=== PATIENT | male | born 2000 | race Caucasian/White ===

== ENCOUNTER 2018-12-30 01:10 | Emergency (ER) | payer SELFPAY ==
[~2018-12-30] VITALS: Ht 177.8 cm; Wt 71.0 kg
[2018-12-30] MEDS ORDERED: LIDOCAINE 1%/EPI 1:100,000 10 ML VIAL IJ ONE (07:00)
[2018-12-30] MEDS ORDERED: BACITRACIN ZINC OINT UDPKT TOP ONE (07:00)
[2018-12-30] MEDS ORDERED: LIDOCAINE HCL/EPINEPHRINE 1%-EPI 1:100,000 20 ML VIAL INFIL ONE (07:06)
[2018-12-30 07:58] VITALS: BP 115/60
== END 2018-12-30 10:15 | disposition home or self-care (01) ==
LOC: ER 01:10
DX: S01.112A Laceration without foreign body of left eyelid and periocular area, initial encounter (principal); S01.81XA Laceration without foreign body of other part of head, initial encounter; F12.10 Cannabis abuse, uncomplicated; Y04.0XXA Assault by unarmed brawl or fight, initial encounter; Y93.89 Activity, other specified; Y92.89 Other specified places as the place of occurrence of the external cause
CPT/HCPCS: 12013; 99284; J3490

== ENCOUNTER 2022-10-02 13:10 | Emergency (ER) | payer OTHER, MEDICAID ==
[~2022-10-02] VITALS: Ht 167.6 cm; Wt 75.0 kg
[2022-10-02 13:32] VITALS: BP 151/86
[2022-10-02] MEDS ORDERED: KETOROLAC 60MG/2ML VIAL IM STA (16:27)
[2022-10-02 16:49] LABS: BASOPHILS % 0.3 % (0.0-2.0); EOSINOPHILS % 0.2 % (0.0-5.0); HEMATOCRIT. 47.1 % (42.0-52.0); LYMPHOCYTES % 32.8 % (20.0-50.0); MEAN CORPUSCULAR HEMOGLOBIN 31.8 pg (28.0-32.0); MEAN CORPUSCULAR VOLUME 93.8 fL (80.0-94.0); MEAN PLATELET VOLUME 7.9 fl (7.4-10.4); MONOCYTES % 6.7 % (2.0-8.0); PLATELET 235 x1000/uL (130-400); RED BLOOD CELL COUNT 5.02 mill/uL (4.7-6.1); RED CELL DISTRIBUTION WIDTH 13.5 % (11.6-14.6)
[2022-10-02 16:51] LABS: CLARITY URINE CLEAR (CLEAR); COLOR URINE YELLOW (YELLOW); KETONES URINE TRACE (NEGATIVE); LEUKOCYTE ESTERASE URINE NEGATIVE (NEGATIVE); NITRITE URINE NEGATIVE (NEGATIVE); OCCULT BLOOD URINE NEGATIVE (NEGATIVE); PROTEIN URINE NEGATIVE (NEGATIVE); SPECIFIC GRAVITY URINE 1.019 (1.005-1.030); UROBILINOGEN URINE 0.2 E.U./dL (0.2-1.0)
[2022-10-02 17:02] LABS: CHLORIDE 107 mEq/L (98-107)
[2022-10-02] MEDS ORDERED: IBUP-2028 MT (18:10)
== END 2022-10-02 18:23 | disposition home or self-care (01) ==
LOC: ER 13:10
DX: M54.50 Low back pain, unspecified (principal); F12.10 Cannabis abuse, uncomplicated
CPT/HCPCS: 36415; 74176; 80053; 81003; 85025; 96372; 99284; J1885

== ENCOUNTER 2023-06-22 16:27 | Emergency (ER) | payer OTHER, MEDICAID ==
[~2023-06-22] VITALS: Ht 180.3 cm; Wt 112.0 kg
[~2023-06-22 16:27] MED LIST: IBUP-2028 MT
[2023-06-22 16:47] VITALS: BP 130/76; PULSE 85; RESP 18; TEMP 98.3; O2SAT 99
[2023-06-22 17:14] LABS: CLARITY URINE TURBID (CLEAR); COLOR URINE YELLOW (YELLOW); GLUCOSE URINE NEGATIVE (NEGATIVE); KETONES URINE NEGATIVE (NEGATIVE); LEUKOCYTE ESTERASE URINE NEGATIVE (NEGATIVE); NITRITE URINE NEGATIVE (NEGATIVE); OCCULT BLOOD URINE NEGATIVE (NEGATIVE); PROTEIN URINE NEGATIVE (NEGATIVE); SPECIFIC GRAVITY URINE 1.019 (1.005-1.030)
[2023-06-22 17:31] LABS: AMORPHOUS SEDIMENT URINE 1+ /lpf; BACTERIA URINE 4+; RBC URINE 0-2 /hpf (0-2); SQUAMOUS EPITHELIAL CELL URINE FEW /lpf (RARE/1+); WBC URINE 0-2 /hpf (0-2)
[2023-06-22] MEDS ORDERED: CEFTRIAXONE SODIUM 500 MG/VIAL IM ONE (19:30)
[2023-06-22] MEDS ORDERED: DOXY100C5 MT (20:30)
[2023-06-25 08:07] LABS: CHLAMYDIA TRACHOMATIS NAA Negative (Negative); NEISSERIA GONORRHOEAE NAA Negative (Negative)
== END 2023-06-22 21:19 | disposition home or self-care (01) ==
LOC: ER 16:27
DX: N39.0 Urinary tract infection, site not specified (principal); F12.10 Cannabis abuse, uncomplicated
CPT/HCPCS: 99285; 93976; 87491; 87591; 81003; 76870; 96372; J0696